=== PATIENT | female | born 1965 | race Caucasian/White ===

== ENCOUNTER 2017-04-12 17:02 | Emergency (ER) | payer MEDICAID ==
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
[~2017-04-12 17:02] MED LIST: DOXYCYCLINE150 MG PO; EFFEXOR75 MG PO; MOTRIN600 M1 PO; SKELAXIN PO; TAMIFLU75 M1 PO
== END 2017-04-12 18:14 | disposition home or self-care (01) ==
LOC: SED 17:02
DX: S20.211A Contusion of right front wall of thorax, initial encounter (principal); Z98.890 Other specified postprocedural states; Z88.6 Allergy status to analgesic agent; Z79.899 Other long term (current) drug therapy; W22.8XXA Striking against or struck by other objects, initial encounter; Y92.830 Public park as the place of occurrence of the external cause
CPT/HCPCS: 71020; 99283